=== PATIENT | male | born 1965 | race Caucasian/White ===

== ENCOUNTER 2020-06-21 08:14 | Emergency (ER) | payer OTHER, SELFPAY ==
[2020-06-21 08:33] VITALS: BP 134/92; PULSE 62; RESP 18; TEMP 35.9; O2SAT 98
--- NOTE | 2020-06-21 08:50 | ED.SKABFB ---
HPI - Skin/Abscess/Foreign Bdy General Chief complaint: Wound/Laceration Stated complaint: Laceration on left hand finger Time Seen by Provider: 06/21/20 08:36 Source: patient and RN notes reviewed Mode of arrival: ambulatory Limitations: no limitations History of Present Illness HPI narrative: Patient presents today with laceration to his left second finger that was sustained yesterday while at work. He cut his finger with a new utility knife blade. Patient works for [employer]. States he went into work today and was asked if the wound was still bleeding and he stated that it was and was told to come in for evaluation. Denies numbness or tingling in the finger. He is up-to-date on his tetanus vaccine. Currently rates pain 05/08. He did clean the wound well after it was sustained. MD complaint: laceration Related Data Home Medications Medication Instructions Recorded Confirmed aspirin 81 mg PO DAILY 06/21/20 06/21/20 irbesartan 300 mg PO DAILY 06/21/20 06/21/20 metoprolol tartrate 100 mg PO DAILY 06/21/20 06/21/20 Allergies Allergy/AdvReac Type Severity Reaction Status Date / Time adhesive tape Allergy Unknown RASH Verified 06/21/20 08:26 Review of Systems Review of Systems: Narrative: CONSTITUTIONAL: Denies body aches, fever, chills, or sweats. EYES: Denies visual changes, redness, or discharge. ENT: Denies rhinorrhea, congestion, sore throat, or otalgia. CARDIOVASCULAR: Denies chest pain, palpitations, or edema. RESPIRATORY: Denies cough or dyspnea. GASTROINTESTINAL: Denies abdominal pain, nausea, vomiting, or diarrhea. GENITOURINARY: Denies dysuria or hematuria. SKIN: Denies rash, itching. + Laceration to left second finger MUSCULOSKELETAL: Denies back pain, joint pain, or myalgia. NEUROLOGIC: Denies headache, numbness, tingling, or weakness. PSYCH: Denies depression or anxiety. [facility] Past Medical History Medical History (Updated 06/21/20 @ 08:58 by Kathia Brown, KEYSHAWN, BC) Hypertension Family History Family History Sibling Family history of premature coronary heart disease Family history of coronary artery disease Father Family history of obesity Hypertension Social History Social History Smoking status: Never smoker Alcohol intake: current Comments At time of signature, I have reviewed and agree with nursing past medical, surgical, social and family history unless otherwise noted. Please see nursing chart for further information. There is no relevant family history pertinent to the presenting complaint Exam Narrative: Exam Narrative: GENERAL: Well-appearing, well-nourished, and in no acute distress. HEAD: Normocephalic, atraumatic. EYES: EOMI. No redness or drainage. Conjunctivae normal. ENT: Mucous membranes pink and moist. NECK: Normal AROM. CHEST: No respiratory distress. EXTREMITIES: Normal range of motion. No edema. Left 3rd finger old partial amputation. SKIN: Warm, dry, no rash. Capillary refill normal. Normal skin turgor. 1 cm superficial flap laceration to distal phalanx of left 2nd finger. No active bleeding currently. Distal sensation intact. Capillary refill normal. Range of motion normal. NEURO: No focal deficits. Alert and oriented x3. Gait steady. PSYCH: Normal affect. No signs of depression or anxiety. Course Vital Signs Vital signs: Vital Signs Temperature 96.6 F L 06/21/20 08:33 Pulse Rate 62 06/21/20 08:33 Respiratory Rate 18 06/21/20 08:33 Blood Pressure 134/92 H 06/21/20 08:33 Pulse Oximetry 98 06/21/20 08:33 Temperature 96.6 F L 06/21/20 08:33 Pulse Rate 62 06/21/20 08:33 Respiratory Rate 18 06/21/20 08:33 Blood Pressure 134/92 H 06/21/20 08:33 Pulse Oximetry 98 06/21/20 08:33 Reviewed. Pt has been instructed to follow up with his PCP regarding his elevated blood pressure today.
== END 2020-06-21 08:57 | disposition home or self-care (01) ==
PROVIDERS: Emergency Provider Nurse Practitioner; PCP Family Medicine
DX: S61.211A Laceration without foreign body of left index finger without damage to nail, initial encounter (principal); W26.0XXA Contact with knife, initial encounter; Y99.0 Civilian activity done for income or pay; I10 Essential (primary) hypertension
CPT/HCPCS: 29130; 99213; G0463

== ENCOUNTER 2020-07-30 15:48 | Emergency (ER) | payer OTHER, SELFPAY ==
--- NOTE | 2020-07-30 15:54 | ED.ANIMALBIT ---
HPI - Animal Bite General Chief Complaint: Animal Bite Stated Complaint: dog bite Time Seen by Provider: 07/30/20 16:00 Source: patient and RN notes reviewed Mode of arrival: ambulatory Limitations: no limitations History of Present Illness HPI narrative: 54-year-old male presents concern for dog bite to his right lower leg that occurred while he was working today at 1230. The dog was not known to him. He reports a small wound to the lateral right lower leg. He reports that his employer wanted him to get evaluated. Reports a history of mitral valve repair 6 years ago. He denies any surrounding redness, drainage around the wound. Denies fever. MD complaint: animal bite Related Data Home Medications Medication Instructions Recorded Confirmed aspirin 81 mg PO DAILY 06/21/20 07/30/20 irbesartan 300 mg PO DAILY 06/21/20 07/30/20 metoprolol tartrate 100 mg PO DAILY 06/21/20 07/30/20 Allergies Allergy/AdvReac Type Severity Reaction Status Date / Time adhesive tape Allergy Unknown RASH Verified 07/30/20 16:07 Review of Systems Review of Systems: Narrative: CONSTITUTIONAL: Denies malaise, chills, sweats, or fever. CARDIOVASCULAR: Denies chest pain, palpitations, or edema. RESPIRATORY: Denies cough or dyspnea. SKIN: Reports puncture wound to the right lower lateral leg MUSCULOSKELETAL: Denies musculoskeletal pain NEUROLOGIC: Denies numbness, weakness All systems reviewed & are unremarkable except as noted in HPI and below PMFSH Past Medical History Medical History (Updated 07/30/20 @ 16:12 by Allison Abrams NP) Aortic dilatation Finger amputation, traumatic HTN (hypertension), benign Hypertension Obesity (BMI 30.0-34.9) Surgical History Surgical History (Updated 07/30/20 @ 16:13 by Allison Abrams NP) H/O arthroscopy of right knee H/O mitral valve repair Hx of tonsillectomy Family History Family History Sibling Family history of premature coronary heart disease Family history of coronary artery disease Father Family history of obesity Hypertension Social History Social History Smoking status: Never smoker Alcohol intake: current Comments At time of signature, agree with nursing past medical, surgical, social and family history. There is no relevant family history pertinent to the presenting complaint Exam Narrative: Exam Narrative: GENERAL: Well-appearing, well-nourished, and in no acute distress. HEAD: Normocephalic, atraumatic. EYES: PERRLA, conjunctivae clear, and EOMI. ENT: Mucous membranes moist. Oropharynx without edema, erythema or lesions. NECK: Supple. No lymphadenopathy CHEST: Clear to auscultation. No respiratory distress. HEART: Regular rate and rhythm. SKIN: Warm, dry. 0.5 cm puncture wound with scab noted to the right lower leg, lateral aspect. No surrounding erythema, edema, induration, no drainage noted. NEURO: Alert and oriented x3. PSYCH: Normal mood and affect Course Course Emergency Course: Discussed pros and cons of prophylactic antibiotics, through shared decision-making, patient chooses to start prophylactic antibiotics due to history of mitral valve repair. Patient is aware of diagnosis, understands and agrees to treatment plan. Anticipatory guidance given. Patient agrees to follow-up as directed and is aware of reasons to seek care at the emergency department. Portions of this record may have been created with voice recognition software Vital Signs Vital signs: Vital Signs Temperature 96.4 F L 07/30/20 16:02 Pulse Rate 67 07/30/20 16:02 Respiratory Rate 16 07/30/20 16:02 Blood Pressure 127/85 07/30/20 16:02 Pulse Oximetry 99 07/30/20 16:02 Temperature 96.4 F L 07/30/20 16:02 Pulse Rate 67 07/30/20 16:02 Respiratory Rate 16 07/30/20 16:02 Blood Pressure 127/85 07/30/20 16:02 Pulse Oximetry 99 07/30/20 16:02
[2020-07-30 16:02] VITALS: BP 127/85; PULSE 67; RESP 16; TEMP 35.8; O2SAT 99
== END 2020-07-30 16:17 | disposition home or self-care (01) ==
PROVIDERS: Emergency Provider Nurse Practitioner
DX: S81.831A Puncture wound without foreign body, right lower leg, initial encounter (principal); W54.0XXA Bitten by dog, initial encounter; Z95.2 Presence of prosthetic heart valve; I10 Essential (primary) hypertension
CPT/HCPCS: 99213; G0463

== ENCOUNTER 2020-08-28 12:36 | Emergency (ER) | payer OTHER, SELFPAY ==
--- NOTE | ~2020-08-28 | XR_ITS ---
EXAMINATION: XR forearm LT 2V EXAM DATE: 08/28/2020 13:12 INDICATION: Left forearm swelling s/p fall today. Initial encounter. TECHNIQUE: Left forearm frontal and lateral projections obtained and reviewed. There is no prior sher dy for comparison. FINDINGS: There are no acute left forearm fractures or dislocations identified. There is no subcutan eous gas. There is soft tissue swelling over the forearm posteriorly. There are no radiopaque forei gn bodies. IMPRESSION: 1. XR forearm LT 2V exam without acute osseous findings. 2. Soft tissue swelling. Reviewed, dictated and finalized at location B.
[2020-08-28 12:45] VITALS: BP 136/87; PULSE 66; RESP 16; TEMP 35.9; O2SAT 100
--- NOTE | 2020-08-28 13:02 | ED.UPPEXIN ---
HPI - Extremity Injury (Upper) General Chief Complaint: Extremity Injury, Upper Stated Complaint: swelling left forearm Time Seen by Provider: 08/28/20 12:55 Source: patient and RN notes reviewed Mode of arrival: ambulatory Limitations: no limitations History of Present Illness HPI narrative: 54-year-old male presents with concern for left forearm injury. Reports he fell earlier today hitting his arm on a metal box. He reports a raised, red, tender area on his left forearm. He denies any distal pain, decreased sensation, decreased strength, decreased range of motion. MD complaint: injury to: left and arm Related Data Home Medications Medication Instructions Recorded Confirmed aspirin 81 mg PO DAILY 06/21/20 07/30/20 irbesartan 300 mg PO DAILY 06/21/20 07/30/20 metoprolol tartrate 100 mg PO DAILY 06/21/20 07/30/20 nitroglycerin mg 08/28/20 Allergies Allergy/AdvReac Type Severity Reaction Status Date / Time adhesive tape Allergy Unknown RASH Verified 07/30/20 16:07 Review of Systems Review of Systems: Narrative: CONSTITUTIONAL: Denies malaise, chills, sweats, or fever. SKIN: Reports abrasion to left forearm MUSCULOSKELETAL: Reports left arm pain with raised area NEUROLOGIC: Denies numbness, weakness All systems reviewed & are unremarkable except as noted in HPI and below PMFSH Past Medical History Medical History (Updated 08/28/20 @ 13:17 by Allison Abrams NP) Aortic dilatation Finger amputation, traumatic HTN (hypertension), benign Hypertension Obesity (BMI 30.0-34.9) Surgical History Surgical History (Updated 07/31/20 @ 00:00 by Ayaka Barkley) H/O arthroscopy of right knee H/O mitral valve repair Hx of tonsillectomy Family History Family History Sibling Family history of premature coronary heart disease Family history of coronary artery disease Father Family history of obesity Hypertension Social History Social History Smoking status: Never smoker Alcohol intake: current Comments At time of signature, agree with nursing past medical, surgical, social and family history. There is no relevant family history pertinent to the presenting complaint Exam Narrative: Exam Narrative: GENERAL: Well-appearing, well-nourished, and in no acute distress. HEAD: Normocephalic, atraumatic. EYES: PERRLA, conjunctivae clear NECK: Supple. CHEST: Speaks in full sentences. No respiratory distress. HEART: Regular rate and rhythm. Normal and equal peripheral pulses. EXTREMITIES: Left arm, hand, digits have normal strength and sensation, normal range of motion. Hematoma noted to the lateral forearm approximately 6 cm x 3 cm with a central scab. 5/5 strength with wrist and digit flexion and extension. Normal sensation with sensitivity to light touch and pain. No point tenderness. No open wounds, no skin tenting, no devitalized tissue or atrophy, no trophic changes, no obvious deformity, alignment normal, nearby joints and structures intact. Distal pulses palpable and equal bilaterally, skin warm, dry, pink. Capillary refill less than 3 seconds. SKIN: Warm, dry, no rash. NEURO: Alert and oriented x3. PSYCH: Normal mood and affect Course Course Emergency Course: Patient is aware of diagnosis, understands and agrees to treatment plan. Anticipatory guidance given. Patient agrees to follow-up as directed and is aware of reasons to seek care at the emergency department. Portions of this record may have been created with voice recognition software Vital Signs Vital signs: Vital Signs Temperature 96.6 F L 08/28/20 12:45 Pulse Rate 66 08/28/20 12:45 Respiratory Rate 16 08/28/20 12:45 Blood Pressure 136/87 08/28/20 12:45 Pulse Oximetry 100 08/28/20 12:45 Temperature 96.6 F L 08/28/20 12:45 Pulse Rate 66 08/28/20 12:45 Respiratory Rate 16 08/28/20 12:45 Blood Pressu
== END 2020-08-28 13:34 | disposition home or self-care (01) ==
PROVIDERS: Emergency Provider Nurse Practitioner; PCP Family Medicine
DX: S50.12XA Contusion of left forearm, initial encounter (principal); W19.XXXA Unspecified fall, initial encounter; I10 Essential (primary) hypertension; Z79.82 Long term (current) use of aspirin
CPT/HCPCS: 73090; 99213; G0463

== ENCOUNTER → 2021-02-22 09:43 | Outpatient (CLI) | payer OTHER, SELFPAY ==
--- NOTE | ~2021-02-22 | XR_ITS ---
XR finger 1st LT min 2V 02/22/2021 09:52 INDICATION: Left first finger pain PROCEDURE: 3 views left first finger COMPARISON: No prior studies for comparison. FINDINGS: Fracture, dislocation or subluxation is not identified. Mild osteoarthritis of the first MC P joint. The soft tissues appear within normal limits. No foreign bodies are identified. IMPRESSION: 1: Mild osteoarthritis first MCP joint. Reviewed, dictated and finalized at location A. [facility] [employer]MER
== END ==
PROVIDERS: PCP Family Medicine; Visit Provider Physician Assistant
DX: M79.645 Pain in left finger(s) (principal); M19.042 Primary osteoarthritis, left hand
CPT/HCPCS: 73140

== ENCOUNTER 2024-02-11 13:19 | Emergency (ER) | payer OTHER, SELFPAY ==
--- NOTE | ~2024-02-11 | XR_ITS ---
EXAMINATION: XR knee LT min 4V DATE: 02/11/2024 14:00 INDICATION: Left knee pain. Fall from ladder. TECHNIQUE: 4 views of left knee were obtained. COMPARISON: None. FINDINGS: Alignment is normal. No fracture. There is mild osteoarthritis of medial and patellofemoral compartments. No knee joint effusion. IMPRESSION: 1. Mild left knee osteoarthritis. Reviewed, dictated and finalized at location A. [employer] SET UP OPERATOR EXTERNAL
[2024-02-11 14:01] VITALS: BP 110/74; PULSE 68; RESP 15; TEMP 36.5; O2SAT 95
--- NOTE | 2024-02-11 14:20 | ED_ITS ---
HPI - Extremity Injury (Lower) General Chief Complaint: Extremity Injury, Lower Stated Complaint: fall Time Seen by Provider: 02/11/24 13:32 History of Present Illness HPI Narrative: Patient is a 58-year-old male who presents ER with left knee pain. He was standing on a 2 ft ladder when it collapsed beneath him. He struck his left knee on the fall. He has been able to ambulate. He has taken ibuprofen for pain. No numbness or tingling. There is swelling to the superior aspect of the knee and he has pain over the patella. No additional concerns. Did not strike his head or lose consciousness. Related Data Home Medications Medication Instructions Recorded Confirmed aspirin 81 mg tablet 81 mg PO DAILY 06/21/20 03/12/23 irbesartan 300 mg tablet 300 mg PO DAILY 06/21/20 03/12/23 metoprolol tartrate 100 mg tablet 100 mg PO DAILY 06/21/20 03/12/23 nitroglycerin 0.4 mg sublingual mg 08/28/20 03/12/23 tablet albuterol sulfate 90 mcg/actuation g inhalation 03/02/22 03/12/23 aerosol inhaler Allergies Allergy/AdvReac Type Severity Reaction Status Date / Time adhesive tape Allergy Unknown RASH Verified 02/11/24 14:01 Review of Systems Constitutional: Constitutional: Reports no additional constitutional complaints Musculoskeletal: Musculoskeletal: Denies back pain, Reports arthralgias, Reports joint swelling and Denies muscle cramps Integumentary/Breasts: Skin/Breast: Reports system reviewed and no additional complaints, except as docu Neurologic: Reports system reviewed and no additional complaints, except as documented [facility] Past Medical History Medical History Aortic dilatation Finger amputation, traumatic HTN (hypertension), benign Hypertension Obesity (BMI 30.0-34.9) Surgical History Surgical History H/O arthroscopy of right knee H/O mitral valve repair Hx of tonsillectomy Family History Family History Sibling Family history of premature coronary heart disease Family history of coronary artery disease Father Family history of obesity Hypertension Social History Social History (Reviewed 12/29/23 @ 16:12 by DERRICK Berry Smoking status: Never smoker Alcohol intake: current Substance use: never Substance use type: does not use Do You Feel Safe in your Home?: Yes Lack of Transportation: No Lack of Food: Never True Current Housing: I Have Housing Concerned About Future Housing: No Difficulty Paying Gas/Electric Bills: No Difficulty Paying for Meds: No Currently Unemployed: No Education: Trade/Vocational Certificate Difficulty w/ Childcare or Family Care: No Exam Narrative: GENERAL: Well-appearing, well-nourished, and in no acute distress. HEAD: Normocephalic, atraumatic. ENT: Mucous membranes moist. EXTREMITIES: Normal range of motion. No edema. Mild swelling suprapatellar region of the left knee. Left knee ligamentously intact. No joint line tenderness in the left. SKIN: Warm, dry, no rash. NEURO: Alert and oriented x3. PSYCH: Normal mood and affect. Course Course Emergency Course: Soft tissue injury of quad or bursitis, RICE at home. No fracture. Discharge. Vital Signs Vital signs: Vital Signs Temperature 97.7 F 02/11/24 14:01 Pulse Rate 68 02/11/24 14:01 Respiratory Rate 15 02/11/24 14:01 Blood Pressure 110/74 02/11/24 14:01 Pulse Oximetry 95 02/11/24 14:01 Oxygen Delivery Room Air 02/11/24 14:01 Temperature 97.7 F 02/11/24 14:01 Pulse Rate 68 02/11/24 14:01 Respiratory Rate 15 02/11/24 14:01 Blood Pressure 110/74 02/11/24 14:01 Pulse Oximetry 95 02/11/24 14:01 Oxygen Delivery Room Air 02/11/24 14:01 MDM - Extremity Injury (Lower) Imaging Data Radiologist's impression: ITS Impressions Knee X-Ray 02/11/24 14:21 IMPRESSION: 1. Mild left knee osteoarthritis. Discharge Plan Discharge Clinical Impression: Injury of knee Patient Disposition: Home, Self-Care Condition: Stable Instructions: Muscle Strain (ED), Knee Bursitis (ED), P.R.I.C.E. Treatment (ED) Additional Instructions: Ice the affected area for 20 minutes and then removed the ice. Take anti- inflammatory medication for pain, apply an Baljit wrap as needed. Follow-up with your doctor. Prescriptions: New naproxen 375 mg tablet 375 mg PO BID Qty: 14 0RF No Action metoprolol tartrate 100 mg tablet 100 mg PO DAILY irbesartan 300 mg tablet 300 mg PO DAILY aspirin 81 mg Tablet 81 mg PO DAILY nitroglycerin 0.4 mg tablet, sublingual albuterol sulfate 90 mcg/actuation HFA aerosol inhaler inhalation cephalexin 500 mg capsule 500 mg PO Q8H Qty: 21 1RF Follow-up/Referrals: Malvin Velasquez MD [Primary Care Provider] - 1 Week
[2024-02-11 15:38] VITALS: BP 115/74; PULSE 66; RESP 17; TEMP 36.4; O2SAT 96
== END 2024-02-11 15:41 | disposition home or self-care (01) ==
PROVIDERS: Emergency Provider Emergency Medicine; PCP Family Medicine
DX: S89.92XA Unspecified injury of left lower leg, initial encounter (principal); I10 Essential (primary) hypertension; E66.9 Obesity, unspecified; Z68.34 Body mass index [BMI] 34.0-34.9, adult; Z89.029 Acquired absence of unspecified finger(s); M17.12 Unilateral primary osteoarthritis, left knee; W11.XXXA Fall on and from ladder, initial encounter
CPT/HCPCS: 73564; 99283